=== PATIENT | male | born 2000 | race Caucasian/White ===

== ENCOUNTER 2021-06-13 14:58 | Emergency (ER) | payer MEDICAID ==
[~2021-06-13] VITALS: Ht 185.4 cm; Wt 77.3 kg
[2021-06-13 15:07] VITALS: BP 130/77
== END 2021-06-13 19:10 | disposition home or self-care (01) ==
LOC: ER 14:59
DX: R07.89 Other chest pain (principal); V86.99XA Unspecified occupant of other special all-terrain or other off-road motor vehicle injured in nontraffic accident, initial encounter; Y93.89 Activity, other specified; Y92.89 Other specified places as the place of occurrence of the external cause; Y99.8 Other external cause status
CPT/HCPCS: 71046; 93005; 99283